=== PATIENT | female | born 1965 | race Caucasian/White ===

== ENCOUNTER 2018-09-29 14:44 | Inpatient (IN) | payer MEDICAID ==
[~2018-09-29] VITALS: Ht 165.1 cm; Wt 56.0 kg
--- NOTE | 2018-09-29 14:53 | NUR ---
PT WAS B/B AMBULANCE FROM STREET. MICHELLE SAMAYOA ON LOWER CONGREGATIONAL AND STATED PAIN. STATED SOB WELL. PT IS NOT COOPERATIVE. YELLING AROUND TO MEDICAL STAFFS. ANXIOUS AND ARRITATED.
--- NOTE | 2018-09-29 15:01 | NUR ---
PT WAS PUT ON BED, O2 DROPPED TO 86% ON NC @6L. MONBREATHING MASK WAS APPLIED TO PT.
--- NOTE | 2018-09-29 15:54 | NUR ---
PT WAS ADMINISTERED WITH ROCEPHINE. IM PER MD ORDER.
--- NOTE | 2018-09-29 16:28 | NUR ---
XRAY DONE BEDSIDE.
--- NOTE | 2018-09-29 16:33 | NUR ---
BREATHING TX IS ONGOING.
[2018-09-29 18:22] LABS: BASOPHIL % 0.5 % (0-2); PLATELET COUNT 300 x10^3mcL (130-400); RED CELL DISTRIBUTION WIDTH 14.1 % (11.5-14.5)
[2018-09-29 18:40] LABS: CALCIUM 8.6 mg/dL (8.5-10.1); CHLORIDE SERUM 110 mmol/L (98-107); CREATININE SERUM 0.7 mg/dL (0.6-1.0); GFR1 > 60 mL/min; GLUCOSE SERUM 105 mg/dL (74-106); POTASSIUM SERUM 4.1 mmol/L (3.5-5.1); SODIUM SERUM 143 mmol/L (136-145)
[2018-09-29 18:45] LABS: ALBUMIN 3.1 g/dL (3.4-5.0); ALKALINE PHOSPHATASE 95 U/L (46-116); ALT/SGPT 23 U/L (14-59); AST/SGOT 14 U/L (15-37); BILIRUBIN TOTAL 0.24 mg/dL (0.20-1.00); TOTAL PROTEIN, SERUM 6.7 g/dL (6.4-8.2)
--- NOTE | 2018-09-29 20:13 | NUR ---
REPORT GIVEN TO DENNIS WOODARD TO ASSUME CARE OF THE PT.
[2018-09-29 20:35] LABS: CHOLESTEROL/HDL RATIO 3.2; MAGNESIUM 2.2 mg/dL (1.8-2.4); PHOSPHOROUS 3.1 mg/dL (2.5-4.9)
[2018-09-29 20:43] VITALS: BP 132/76
[2018-09-29 20:45] LABS: T3 TOTAL 1.39 ng/mL
--- NOTE | 2018-09-29 20:52 | NUR ---
RECEIVED PT FROM ER VIA WC ACCOMPANIED WITH EMT, PT SEEN, ALERT AND ORIENTED, DENIES HEADACHE OR DIZZINESS, BREATHING EVEN AND UNLABORED, LUNG SOUNDS DIMINISHED, ON ROOM AIR WITH SPO2:93%, NO RESP DISTRESS OR SOB NOTED, MEDSURG PT, DENIES CHEST PAIN, SL TO LFA, PULSES PALPABLE, NO EDEMA NOTED, ABD SOFT AND FLAT WITH ACTIVE BS, NO BM AT THIS TIME, DENIES ANY PROBLEM WITH VOIDING, ERYTHEMA NOTED TO PT'S LOWER JAW, NO OPEN WOUND NOTED, ERYTHEMA, PT CALM AT THIS TIME, ENDORSED TO PRIMARY NURSE VANCE FOR CONT NURSING CARE.
--- NOTE | 2018-09-29 21:04 | NUR ---
RECEIVED PT FROM ER AAOX4 , PT DENY SOB AT THE MOMENT , LUNG SOUNDS DIMINISHED NO RESP DISTRESS NOTE , ON RA SAT 93%, NOTED PT' S FACE WITH MULTIPLE PUMPS THAT ARE NOTE DRAINING , ERYTHEMA NOTED TO JAW, NO OPEN AREA , PICTURE TAKEN , PT C/O LUMP ON LEFT BREAST 3/10 PER PT SHE HAS THIS LAUMP FOR 5YRS SKIN AROUND THE LUMP IS INTACT , WILL NOTIFY HL INTACT TO LFA . CALL LIGHT WIHIN PT'S REACH , WILL CON'T TO MONITOR AND ASSIST PT WITH CARE .
[2018-09-29 21:06] LABS: FREE T4 0.98 ng/dL (0.76-1.46); FREE THYROXINE INDEX 2.2 ug/dL (1.4-4.5)
--- NOTE | 2018-09-30 03:24 | NUR ---
PT'S IN BED WITH EYES CLOSED , PIV INTACT INFUSING WELL .
[2018-09-30 05:24] VITALS: BP 126/71
[2018-09-30 06:12] LABS: microscopic required? NO
--- NOTE | 2018-09-30 06:29 | NUR ---
I HAVE REVIEWED THE DATA COLLECTION BY DAIRY HUSBANDMAN (NAME):VANCE SANDERSON ENTERED ON (DATE/TIME): I CONCUR WITH THE DATA AND ANY EXCEPTIONS OR COMMENTS ARE LISTED BELOW:
--- NOTE | 2018-09-30 06:30 | NUR ---
NO CHANGES OF CONDITION NOTED , ALL DUE MEDS GIVEN NO REACTION NOTED, URINE COLLECTED SENT TO THE LAB ORDERED , PIV INTACT INFUSING WELL , PT';S IN BED WITH EYES CLOSED.
[2018-09-30 06:42] LABS: BASOPHIL % 0.2 % (0-2); PLATELET COUNT 321 x10^3mcL (130-400); RED CELL DISTRIBUTION WIDTH 13.8 % (11.5-14.5)
[2018-09-30 07:06] LABS: CALCIUM 9.3 mg/dL (8.5-10.1); CARBON DIOXIDE 22.9 mmol/L (21-32); CHLORIDE SERUM 108 mmol/L (98-107); CREATININE SERUM 0.7 mg/dL (0.6-1.0); GFR1 > 60 mL/min; GLUCOSE SERUM 184 mg/dL (74-106); POTASSIUM SERUM 4.3 mmol/L (3.5-5.1); SODIUM SERUM 144 mmol/L (136-145)
--- NOTE | 2018-09-30 07:23 | NUR ---
REPORT TAKEN FROM PERSONAL LINES ACCOUNT MANAGER NURSE, PT AWAKE AND ALERT AT THIS TIME, REQUESTED TO SHOWER, PT WAS ADVISED TO WAIT TILL AFTER BREAKFAST, THE PT VERBALLY AGREED. WILL CONTINUE TO MONITOR.
[2018-09-30 07:39] VITALS: BP 128/73
[2018-09-30 07:53] LABS: UA SPECIFIC GRAVITY 1.025 (1.005-1.035); urine erythrocyte NEGATIVE (NEGATIVE)
[2018-09-30 09:46] VITALS: BP 128/73
[2018-09-30 11:21] LABS: AMPHETAMINE QUAL UR POSITIVE (See below)
[2018-09-30 11:42] VITALS: BP 127/72
[2018-09-30 15:48] VITALS: BP 108/75
[2018-09-30 19:21] VITALS: BP 119/67
--- NOTE | 2018-09-30 19:30 | NUR ---
PT IS A/O x4. MED SURG. DENIES ANY CHEST PAIN OR PRESSURE. PULSES ARE PRESENT. NO EDEMA NOTED. LUNGS CLEAR IN ALL FEILDS. ON RA, DENIES ANY SOB. EQUAL CHEST RISE AND FALL. NO SIGN OF RESP DISTRESS. EQUAL CHEST RISE AND FALL. BOWEL SOUNDS PRESENT x4. DENIES ANY ABD PAIN OR DISTRESS. SMALL CIRCULAR SCAB NOTED ON L LOWER JAW AND SKIN DRYNESS NOTED ON EVY BROW BONE. NO DRAINAGE OR FOUL SMELL NOTED. DENIES ANY PAIN. SALINE LOCKED ON LFA, INTACT AND PATENT. BED IS AT LOWEST SETTING. CALL LIGHT WITHIN REACH. WILL CONTINUE TO MONTIOR.
--- NOTE | 2018-10-01 01:20 | NUR ---
PT IS RESTING IN BED WITH BOTH EYES CLOSED. BREATHING EVEN AND UNALBORED. NO SIGN OF DISTRESS NOTED. BED IS AT LOWEST SETTING. CALL LIGHT WITHIN REACH. WILL CONTINUE TO MONTIOR.
[2018-10-01 04:53] VITALS: BP 134/75
--- NOTE | 2018-10-01 06:24 | NUR ---
PT IS RESTING IN BED. DENIES ANY PAIN OR DISTRESS AT THIS TIME. NO ACUTE EVENT OCCURED AT NIGHT. IV INTACT. BED IS AT LOWEST SETTING. CALL LIGHT WITHIN REACH. WILL ENDORSE TO AM NURSE.
[2018-10-01 07:04] LABS: PLATELET COUNT 361 x10^3mcL (130-400); RED CELL DISTRIBUTION WIDTH 14.4 % (11.5-14.5)
[2018-10-01 07:10] LABS: BASOPHIL % 0 % (0-2)
[2018-10-01 07:18] LABS: CALCIUM 9.2 mg/dL (8.5-10.1); CHLORIDE SERUM 110 mmol/L (98-107); CREATININE SERUM 0.6 mg/dL (0.6-1.0); GFR1 > 60 mL/min; GLUCOSE SERUM 117 mg/dL (74-106); PHOSPHOROUS 4.9 mg/dL (2.5-4.9); POTASSIUM SERUM 3.9 mmol/L (3.5-5.1); SODIUM SERUM 145 mmol/L (136-145)
[2018-10-01 07:24] VITALS: BP 131/78
--- NOTE | 2018-10-01 07:30 | NUR ---
AAO TIMES 4. MED SURG. LUNGS CTA. NO SOB. O2 SAT ON RA 95%. BS'S ACTIVE TIMES 4. MARIN STRONG. IV SITE CDI. COOPERATIVE. PERIPHERAL PULSES PALPABLE. NO EDEMA. NO C/O PAIN.
[2018-10-01] MEDS ORDERED: BACTROBAN22 TOP (09:55)
[2018-10-01] MEDS ORDERED: LEVAQUIN750 MG PO (10:00)
[2018-10-01] MEDS ORDERED: PROAIR HFA8.5 GM IH (10:00)
[2018-10-01] MEDS ORDERED: PREDNISONE20 MG PO (10:00)
[2018-10-01 12:14] VITALS: BP 131/78
--- NOTE | 2018-10-01 14:05 | NUR ---
SHE IS GOING HOME, I REMOVED HER SL ANGIO INTACT. MEDICAL CONCIERGE CONTACTED HER REGARDING HER HOMELESS SITUATION. SHE SAYS HER BOYFRIEND IS COMING TO TAKE HER HOME WITH HIM AND THAT SHE IS DECLINING SERVICES OR HELP FOR RESIDENTIAL PLACMENT. SHE WAS GIVEN HIBICLENS TO BATHE WITH AND ALSO BACTROBAN WAS APPLIED AND I EXPLAINED WHAT MRSA IS, AND SHE HAS DISCHARGE INSTRUCTIONS REGARDING MRSA NARES.
--- NOTE | 2018-10-01 14:55 | NUR ---
GAVE PATIENT DISCHARGE INSTRUCTIONS AND PRESCRIPTION. SHE VERBALIZED "I UNDERSTAND" TO ALL INSTRUCTIONS. DISCHARGED AT 1455, ON HER OWN, SHE IS WATING FOR HER BOYFRIEND TO ARRIVE.
[2018-10-08 10:59] VITALS: Ht 165.1 cm; Wt 56.0 kg
== END 2018-10-01 14:55 | disposition home or self-care (01) | DRG 133 ==
LOC: ED 14:44 → MU 19:52
PROVIDERS: Emergency Medicine; ADMIT Internal Medicine
DX: J96.01 Acute respiratory failure with hypoxia (principal); I42.9 Cardiomyopathy, unspecified; E44.0 Moderate protein-calorie malnutrition; J44.1 Chronic obstructive pulmonary disease with (acute) exacerbation; L03.211 Cellulitis of face; L02.03 Carbuncle of face; F15.10 Other stimulant abuse, uncomplicated; F41.9 Anxiety disorder, unspecified; F17.210 Nicotine dependence, cigarettes, uncomplicated; W57.XXXA Bitten or stung by nonvenomous insect and other nonvenomous arthropods, initial encounter; Z59.0 Homelessness; Y92.89 Other specified places as the place of occurrence of the external cause; Z88.2 Allergy status to sulfonamides; Z80.3 Family history of malignant neoplasm of breast; Z91.19 Patient's noncompliance with other medical treatment and regimen; Z79.899 Other long term (current) drug therapy
CPT/HCPCS: 36600; 83880; 84439; G0378; J0690; J2920; J2930; J3370; J3490; J7030; J7613; J7620; J7644; Q0092

== ENCOUNTER 2019-01-28 18:56 | Inpatient (IN) | payer OTHER ==
[~2019-01-28] VITALS: Ht 165.1 cm; Wt 56.7 kg
[~2019-01-28 18:56] MED LIST: BACTROBAN22 TOP; LEVAQUIN750 MG PO; PREDNISONE20 MG PO; PROAIR HFA8.5 GM IH
[2019-01-28 19:02] VITALS: Ht 165.1 cm; Wt 56.7 kg
[2019-01-28 19:35] LABS: BASOPHIL % 1.7 % (0-2); RED CELL DISTRIBUTION WIDTH 13.6 % (11.5-14.5)
[2019-01-28 19:36] LABS: PLATELET COUNT 495 x10^3mcL (130-400)
[2019-01-28 20:00] LABS: CALCIUM 8.8 mg/dL (8.5-10.1); CHLORIDE SERUM 106 mmol/L (98-107); CREATININE SERUM 0.8 mg/dL (0.6-1.0); GFR1 > 60 mL/min; GLUCOSE SERUM 129 mg/dL (74-106); SODIUM SERUM 143 mmol/L (136-145)
[2019-01-28 20:16] LABS: ALBUMIN 3.5 g/dL (3.4-5.0); ALKALINE PHOSPHATASE 112 U/L (46-116); ALT/SGPT 22 U/L (14-59); AST/SGOT 20 U/L (15-37); BILIRUBIN TOTAL 0.3 mg/dL (0.20-1.00); TOTAL PROTEIN, SERUM 8.1 g/dL (6.4-8.2)
[2019-01-28 20:23] LABS: CHOLESTEROL/HDL RATIO 3.3; MAGNESIUM 2.1 mg/dL (1.8-2.4); PHOSPHOROUS 5.6 mg/dL (2.5-4.9)
[2019-01-28 20:58] VITALS: BP 116/66
[2019-01-28 21:27] VITALS: BP 116/66
[2019-01-29 06:07] VITALS: BP 103/67
[2019-01-29 06:59] LABS: BASOPHIL % 0.1 % (0-2); RED CELL DISTRIBUTION WIDTH 13.6 % (11.5-14.5)
[2019-01-29 07:21] LABS: CALCIUM 8.6 mg/dL (8.5-10.1); CARBON DIOXIDE 21.6 mmol/L (21-32); CHLORIDE SERUM 106 mmol/L (98-107); CREATININE SERUM 0.8 mg/dL (0.6-1.0); GFR1 > 60 mL/min; GLUCOSE SERUM 177 mg/dL (74-106); PHOSPHOROUS 4.1 mg/dL (2.5-4.9); POTASSIUM SERUM 4.1 mmol/L (3.5-5.1); SODIUM SERUM 142 mmol/L (136-145)
[2019-01-29 07:39] LABS: PLATELET COUNT 499 x10^3mcL (130-400)
[2019-01-29 08:49] VITALS: BP 112/72
[2019-01-29 12:19] LABS: microscopic required? NO
[2019-01-29 12:35] LABS: AMPHETAMINE QUAL UR POSITIVE (See below)
[2019-01-29 12:58] LABS: UA SPECIFIC GRAVITY 1.015 (1.005-1.035); urine erythrocyte NEGATIVE (NEGATIVE)
[2019-01-29 13:15] VITALS: BP 91/67
[2019-01-29 17:28] VITALS: BP 111/56
[2019-01-29 20:52] VITALS: BP 103/63
[2019-01-30 05:22] VITALS: BP 124/80
[2019-01-30 06:26] LABS: RED CELL DISTRIBUTION WIDTH 13.6 % (11.5-14.5)
[2019-01-30 06:28] LABS: CALCIUM 8.7 mg/dL (8.5-10.1); CARBON DIOXIDE 23.5 mmol/L (21-32); CHLORIDE SERUM 108 mmol/L (98-107); CREATININE SERUM 0.8 mg/dL (0.6-1.0); GFR1 > 60 mL/min; GLUCOSE SERUM 119 mg/dL (74-106); MAGNESIUM 2.3 mg/dL (1.8-2.4); PHOSPHOROUS 4.9 mg/dL (2.5-4.9); POTASSIUM SERUM 4.5 mmol/L (3.5-5.1); SODIUM SERUM 141 mmol/L (136-145)
[2019-01-30 06:29] LABS: PLATELET COUNT 465 x10^3mcL (130-400)
[2019-01-30 08:48] VITALS: BP 123/79
[2019-01-30] MEDS ORDERED: MUCINEX600 MG PO ×2 (11:12→14:39)
[2019-01-30] MEDS ORDERED: LEVOFLOXACIN500 M1 PO ×2 (11:14→14:39)
[2019-01-30] MEDS ORDERED: PREDNISONE20 MG PO ×2 (11:14→14:39)
[2019-01-30 12:24] VITALS: BP 129/74
[2019-01-30] MEDS ORDERED: LOCOID0.1% TOP ×2 (13:28→14:39)
[2019-01-30 13:47] VITALS: BP 129/74
[2019-01-30] MEDS ORDERED: PROVENTIL0.09 MG/A1 INH (14:33)
== END 2019-01-30 15:08 | disposition home or self-care (01) | DRG 140 ==
LOC: ED 18:56 → DU 19:46 → MU 19:46 → DU 20:42
PROVIDERS: Internal Medicine; Student in an Organized Health Care Education/Training Program; ADMIT Internal Medicine
DX: J44.1 Chronic obstructive pulmonary disease with (acute) exacerbation (principal); J96.00 Acute respiratory failure, unspecified whether with hypoxia or hypercapnia; F12.10 Cannabis abuse, uncomplicated; F15.10 Other stimulant abuse, uncomplicated; F41.9 Anxiety disorder, unspecified; K12.2 Cellulitis and abscess of mouth; B95.62 Methicillin resistant Staphylococcus aureus infection as the cause of diseases classified elsewhere; F17.210 Nicotine dependence, cigarettes, uncomplicated; Z88.2 Allergy status to sulfonamides; Z80.3 Family history of malignant neoplasm of breast; Z71.6 Tobacco abuse counseling; Z23 Encounter for immunization; Z79.899 Other long term (current) drug therapy
CPT/HCPCS: 36600; 83880; 87804; 90658; G0378; J0456; J1956; J2920; J2930; J3490; J7030; J7050; J7613; J7620; J7644; Q0092

== ENCOUNTER 2019-04-03 15:59 | Emergency (ER) | payer SELFPAY ==
[~2019-04-03] VITALS: Ht 165.1 cm; Wt 57.2 kg
[~2019-04-03 15:59] MED LIST changes: +LEVOFLOXACIN500 M1 PO; +LOCOID0.1% TOP; +MUCINEX600 MG PO; +PROVENTIL0.09 MG/A1 INH
[2019-04-03 16:06] VITALS: Ht 165.1 cm; Wt 57.2 kg
[2019-04-03 17:32] VITALS: BP 131/83
== END 2019-04-03 17:32 | disposition home or self-care (01) ==
LOC: ED 15:59
DX: B85.2 Pediculosis, unspecified (principal); J44.9 Chronic obstructive pulmonary disease, unspecified; Z88.2 Allergy status to sulfonamides
CPT/HCPCS: 90715